=== PATIENT | male | born 2000 | race African-American/Black ===

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

== ENCOUNTER 2021-11-29 22:26 | Emergency (ER) | payer SELFPAY ==
[2021-11-29] MEDS ORDERED: Ibuprofen 800 MG TAB ONE (22:42)
[2021-11-30 22:02] LABS: SARS-CoV-2 PCR by NAA Not Detected (NotDetected)
== END 2021-11-29 23:22 | disposition home or self-care (01) ==
LOC: MADERS 22:26
DX: J34.89 Other specified disorders of nose and nasal sinuses (principal); R05.9 Cough, unspecified; R50.9 Fever, unspecified; R09.81 Nasal congestion; R52 Pain, unspecified; F17.210 Nicotine dependence, cigarettes, uncomplicated; Z20.822 Contact with and (suspected) exposure to COVID-19
CPT/HCPCS: 87804; 99283; U0003; U0005

== ENCOUNTER 2022-11-10 15:17 | Emergency (ER) | payer SELFPAY ==
[2022-11-10] MEDS ORDERED: Lidocaine 1% w/Epinephrine 1:100K 30 ML VIAL ONE (15:37)
[2022-11-10] MEDS ORDERED: Bacitracin 1 PK ONE (15:39)
[2022-11-10] MEDS ORDERED: Boostrix 0.5 ML (Tdap) VIAL (>/=7 yrs of age) ONE (15:53)
== END 2022-11-10 16:11 | disposition home or self-care (01) ==
LOC: MADERS 15:17
DX: S51.812A Laceration without foreign body of left forearm, initial encounter (principal); F17.290 Nicotine dependence, other tobacco product, uncomplicated; W26.0XXA Contact with knife, initial encounter; Z23 Encounter for immunization
CPT/HCPCS: 12002; 90471; 90715